=== PATIENT | male | born 1990 | race Two or more races ===

== ENCOUNTER 2019-07-31 13:30 | Emergency (ER) | payer MEDICAID, OTHER ==
[~2019-07-31] VITALS: Ht 165.1 cm; Wt 63.5 kg
[2019-07-31 13:36] VITALS: BP 156/96
[2019-07-31 14:15] LABS: Urine Bacteria NONE SEEN /hpf (None Seen); Urine Blood 1+ /uL (Negative); Urine Specific Gravity 1.028 (1.001-1.035); Urine WBC 528 /hpf (0 - 3)
[2019-07-31] MEDS ORDERED: cefTRIAXone SODIUM 250 MG VL IM ONE (14:15)
[2019-07-31] MEDS ORDERED: AZITHROMYCIN 250 MG TAB PO ONE (14:15)
== END 2019-07-31 14:38 | disposition home or self-care (01) ==
LOC: ER 13:30
DX: N39.0 Urinary tract infection, site not specified (principal); F17.210 Nicotine dependence, cigarettes, uncomplicated; Z20.2 Contact with and (suspected) exposure to infections with a predominantly sexual mode of transmission
CPT/HCPCS: 81001; 96372; 99283; J0696

== ENCOUNTER 2022-10-13 09:43 | Emergency (ER) | payer MEDICAID ==
[~2022-10-13] VITALS: Ht 167.6 cm; Wt 78.0 kg
[2022-10-13 09:59] VITALS: BP 169/100
[2022-10-13] MEDS ORDERED: IBUP800T27 PO (10:30)
== END 2022-10-13 10:58 | disposition home or self-care (01) ==
LOC: ER 09:43
DX: M77.9 Enthesopathy, unspecified (principal); F17.210 Nicotine dependence, cigarettes, uncomplicated; F12.90 Cannabis use, unspecified, uncomplicated; F15.90 Other stimulant use, unspecified, uncomplicated
CPT/HCPCS: 73610; 73630

== ENCOUNTER 2022-11-01 14:39 | Emergency (ER) | payer MEDICAID ==
[~2022-11-01] VITALS: Ht 162.6 cm; Wt 77.7 kg
[~2022-11-01 14:39] MED LIST: IBUP800T27 PO
[2022-11-01 15:20] LABS: Basophils # (auto) 0.1 10 ^3/uL (0-0.2); Basophils % (auto) 0.8 % (0.0-2.0); Eosinophils # (auto) 0.2 10 ^3/uL (0-0.8); Hematocrit 46.7 % (41.0-53.0); Hemoglobin 15.9 g/dL (13.5-17.5); Lymphocytes # (auto) 4.5 10 ^3/uL (0.4-5.4); Lymphocytes % (auto) 46.5 % (10.0-50.0); Mean Corpuscular Hemoglobin 29.2 pg (28.0-32.0); Mean Corpuscular Hgb Conc. 34.1 g/dL (32.0-36.0); Mean Corpuscular Volume 85.7 fL (80.0-100.0); Monocytes # (auto) 0.6 10 ^3/uL (0-1.3); Neutrophils # (auto) 4.4 10 ^3/uL (1.6-8.6); Neutrophils % (auto) 44.7 % (37.0-80.0); Nucleated Red Blood Cells % 0.2 %; Red Blood Cells 5.45 10^6/uL (4.5-5.90); Red Cell Distribution Width 14.1 % (11.8-14.3); White Blood Cell 9.7 10^3/uL (4.4-10.8)
[2022-11-01 15:34] LABS: Albumin 4.1 g/dL (3.4-5.0); Calcium 9.4 mg/dL (8.5-10.1); Potassium 4.1 mmol/L (3.5-5.1)
[2022-11-01 15:38] LABS: INR 0.99 (0.9-1.15); Partial Thromboplastin Time 29.9 sec (24.6-33.4)
[2022-11-01 15:51] LABS: BUN/Creatinine Ratio 12.5 (10.0-20.0); Bilirubin, Total 0.3 mg/dL (0.2-1.0); Total Protein 7.6 g/dL (6.4-8.2)
[2022-11-01] MEDS ORDERED: cloNIDine HCL 0.1 MG TAB PO ONE (16:00)
[2022-11-01] MEDS ORDERED: PANT40TA2 PO (16:20)
[2022-11-01] MEDS ORDERED: LISI-716 PO (16:20)
[2022-11-01 16:47] VITALS: BP 152/97
== END 2022-11-01 16:49 | disposition home or self-care (01) ==
LOC: ER 14:39
DX: I10 Essential (primary) hypertension (principal); K29.70 Gastritis, unspecified, without bleeding; F17.210 Nicotine dependence, cigarettes, uncomplicated; F12.90 Cannabis use, unspecified, uncomplicated; F15.90 Other stimulant use, unspecified, uncomplicated; Z79.899 Other long term (current) drug therapy; Z88.6 Allergy status to analgesic agent
CPT/HCPCS: 36415; 71045; 80053; 84484; 85025; 85610; 85730

== ENCOUNTER 2023-01-13 10:58 | Emergency (ER) | payer MEDICAID ==
[~2023-01-13] VITALS: Ht 167.6 cm; Wt 77.0 kg
[~2023-01-13 10:58] MED LIST changes: +IBUP-1456 PO; -IBUP800T27 PO; +LISI10TA34 PO; +PANT40TA2 PO
[2023-01-13 11:31] VITALS: BP 148/107
[2023-01-13] MEDS ORDERED: LIDOCAINE 1% HCL (LOCAL ANESTH.) INJ 20ML MDV IJ ONE (12:45)
[2023-01-13] MEDS ORDERED: CEPH500C PO (13:31)
== END 2023-01-13 13:31 | disposition home or self-care (01) ==
LOC: ER 10:58
DX: S01.81XA Laceration without foreign body of other part of head, initial encounter (principal); S03.41XA Sprain of jaw, right side, initial encounter; I10 Essential (primary) hypertension; F17.210 Nicotine dependence, cigarettes, uncomplicated; F12.10 Cannabis abuse, uncomplicated; F15.10 Other stimulant abuse, uncomplicated; Y04.0XXA Assault by unarmed brawl or fight, initial encounter; Y93.89 Activity, other specified; Y92.89 Other specified places as the place of occurrence of the external cause; Y99.8 Other external cause status
CPT/HCPCS: 12013; 70110; 99283; J2001

== ENCOUNTER 2023-01-20 14:00 | Emergency (ER) | payer MEDICAID ==
[~2023-01-20] VITALS: Ht 167.6 cm; Wt 76.2 kg
[~2023-01-20 14:00] MED LIST changes: +CEPH500C PO
[2023-01-20 14:35] VITALS: BP 129/72
== END 2023-01-20 14:57 | disposition home or self-care (01) ==
LOC: ER 14:00
DX: S01.81XD Laceration without foreign body of other part of head, subsequent encounter (principal); I10 Essential (primary) hypertension; F17.210 Nicotine dependence, cigarettes, uncomplicated; F12.10 Cannabis abuse, uncomplicated; F15.10 Other stimulant abuse, uncomplicated; X58.XXXD Exposure to other specified factors, subsequent encounter

== ENCOUNTER 2023-05-07 16:37 | Emergency (ER) | payer MEDICAID ==
[~2023-05-07] VITALS: Ht 165.1 cm; Wt 73.9 kg
[2023-05-07 17:05] VITALS: BP 143/102; PULSE 69; RESP 18; TEMP 97.8; O2SAT 97
[2023-05-07] MEDS ORDERED: KETOROLAC TROMETH 60MG/2ML VIAL IM ONE (17:15)
[2023-05-07] MEDS ORDERED: IBUP-1456 PO ×3 (17:36→17:37)
== END 2023-05-07 17:42 | disposition home or self-care (01) ==
LOC: ER 16:37
DX: M77.51 Other enthesopathy of right foot and ankle (principal); I10 Essential (primary) hypertension; F17.210 Nicotine dependence, cigarettes, uncomplicated; F12.90 Cannabis use, unspecified, uncomplicated; F15.90 Other stimulant use, unspecified, uncomplicated; Z79.899 Other long term (current) drug therapy
CPT/HCPCS: 96372; 99283; J1885

== ENCOUNTER 2023-05-18 01:59 | Emergency (ER) | payer MEDICAID ==
[~2023-05-18] VITALS: Ht 170.2 cm; Wt 81.7 kg
[2023-05-18 02:06] VITALS: BP 137/88; PULSE 63; RESP 18; O2SAT 98
[2023-05-18 02:24] LABS: Basophils # (auto) 0 10 ^3/uL (0-0.2); Basophils % (auto) 0.3 % (0.0-2.0); Eosinophils # (auto) 0.1 10 ^3/uL (0-0.8); Eosinophils % (auto) 0.7 % (0.0-7.0); Hematocrit 45.2 % (41.0-53.0); Hemoglobin 15.3 g/dL (13.5-17.5); Lymphocytes # (auto) 2.9 10 ^3/uL (0.4-5.4); Lymphocytes % (auto) 26.1 % (10.0-50.0); Mean Corpuscular Hemoglobin 28.8 pg (28.0-32.0); Mean Corpuscular Hgb Conc. 33.7 g/dL (32.0-36.0); Mean Corpuscular Volume 85.3 fL (80.0-100.0); Monocytes # (auto) 0.6 10 ^3/uL (0-1.3); Monocytes % (auto) 5.6 % (0.0-12.0); Neutrophils # (auto) 7.5 10 ^3/uL (1.6-8.6); Neutrophils % (auto) 67.3 % (37.0-80.0); Red Cell Distribution Width 14.5 % (11.8-14.3); White Blood Cell 11.1 10^3/uL (4.4-10.8)
[2023-05-18 02:35] LABS: Alanine Aminotransferase 74 U/L (7-40); Albumin 4.8 g/dL (3.2-4.8); Alkaline Phosphatase 86 U/L (46-116); Anion Gap 4 (5-15); Aspartate Aminotransferase 30 U/L (13-40); BUN/Creatinine Ratio 4.8 (10.0-20.0); Blood Urea Nitrogen 5 mg/dL (9-23); Calcium 9.7 mg/dL (8.7-10.4); Carbon Dioxide 25 mmol/L (20-30); Chloride 99 mmol/L (98-107); Glucose 92 mg/dL (74-106); Potassium 3.9 mmol/L (3.5-5.1); Sodium 128 mmol/L (136-145)
[2023-05-18 02:36] LABS: Bilirubin, Total 0.7 mg/dL (0.2-1.0); Total Protein 7.7 g/dL (5.7-8.2)
[2023-05-18 02:39] LABS: INR 1.07 (0.9-1.15); Partial Thromboplastin Time 32.1 SEC (24.5-34.5); Prothrombin Time 11.2 sec (9.3-11.8)
== END 2023-05-18 05:04 | disposition left against medical advice (07) ==
LOC: ER 01:59 → EDBD 01:59 → ER 05:04
DX: R07.89 Other chest pain (principal); E87.1 Hypo-osmolality and hyponatremia; I10 Essential (primary) hypertension; Z79.1 Long term (current) use of non-steroidal anti-inflammatories (NSAID); Z79.899 Other long term (current) drug therapy
CPT/HCPCS: 36415; 71045; 80053; 83735; 83880; 84484; 85025; 85610; 85730; 93005

== ENCOUNTER 2023-09-28 14:30 | Emergency (ER) | payer MEDICAID ==
[~2023-09-28] VITALS: Ht 167.6 cm; Wt 82.6 kg
[2023-09-28 15:18] VITALS: BP 130/86; PULSE 80; RESP 16; TEMP 98.4; O2SAT 96
[2023-09-28] MEDS ORDERED: IBUP1TAB5 PO (15:25)
[2023-09-28] MEDS: KETOROLAC TROMETH 30 MG/ML 1ML VIAL IM ONE (15:47)
== END 2023-09-28 15:49 | disposition home or self-care (01) ==
LOC: ER 14:30
DX: M77.8 Other enthesopathies, not elsewhere classified (principal); I10 Essential (primary) hypertension
CPT/HCPCS: 96372; 99283; J1885